=== PATIENT | female | born 1950 | race Caucasian/White ===

== ENCOUNTER → 2016-07-18 | Outpatient (CLI) | payer BC ==
--- NOTE | 2016-07-19 14:46 | MM ---
Reason for exam: screening (asymptomatic). Last mammogram was performed 2 years and 4 months ago. History: Patient is postmenopausal. Physical Findings: A clinical breast exam by your physician is recommended on an annual basis and results should be correlated with mammographic findings. MG Screening Mammo w CAD Bilateral CC and MLO view(s) were taken. Prior study comparison: March 19, 2014, bilateral MG screening mammo w CAD. The breast tissue is heterogeneously dense. This may lower the sensitivity of mammography. There is no discrete abnormality, including at BB. ASSESSMENT: Incomplete: need additional imaging evaluation, BI-RAD 0 RECOMMENDATION: Ultrasound of the right breast. [facility] will attempt to contact patient to return for ultrasound.
== END | disposition home or self-care (01) ==
LOC: RADMAMWWP 13:45
PROVIDERS: ATTEND Family Medicine
DX: Z12.31 Encounter for screening mammogram for malignant neoplasm of breast (principal); R92.8 Other abnormal and inconclusive findings on diagnostic imaging of breast

== ENCOUNTER → 2016-07-25 | Outpatient (CLI) | payer BC ==
--- NOTE | 2016-07-25 11:25 | USB ---
Reason for exam: additional evaluation requested from abnormal screening. History: Patient is postmenopausal. Physical Findings: Nurse Summary: bilateral breast, soft, nodular, movable, 12 o'clock right breast 0.5 x 0.5cm movable, non-tender x 2 weeks (nurse ts). US Breast Workup Limited RT Right breast ultrasound demonstrates a 0.6 x 0.6cm shadowing calcification at 12 o'clock, which correlates to mammographic findings. This corresponds to benign fat necrosis calcifications and correlation to the palpable finding. These results were verbally communicated with the patient and result sheet given to the patient on 07/25/16. ASSESSMENT: Benign, BI-RAD 2 RECOMMENDATION: Return to routine screening mammogram schedule for both breasts.
== END ==
LOC: RADUSWWP 10:05
PROVIDERS: ATTEND Family Medicine
DX: R92.8 Other abnormal and inconclusive findings on diagnostic imaging of breast (principal)

== ENCOUNTER → 2017-08-11 | Outpatient (CLI) | payer MEDICARE ==
--- NOTE | 2017-08-11 15:20 | US ---
EXAMINATION TYPE: US abdomen limited DATE OF EXAM: 08/11/2017 COMPARISON: CT abdomen pelvis April 14, 2014 CLINICAL HISTORY: R10.811 Right upper quad abd tenderness. Patient had ileostomy reversal 3 years ago and has had RUQ pain ever since, h/o cholecystectomy and ileostomy on the right side No obvious hernia seen as well as any other suspicious solid or cystic abnormality or fluid collectio n during dynamic scanning at area of clinical concern. IMPRESSION: As above
== END | disposition home or self-care (01) ==
LOC: RADUSWWP 14:54
PROVIDERS: ATTEND Family Medicine
DX: R10.811 Right upper quadrant abdominal tenderness (principal); Z13.220 Encounter for screening for lipoid disorders
CPT/HCPCS: 76705

== ENCOUNTER → 2017-08-23 | Outpatient (CLI) | payer MEDICARE ==
--- NOTE | 2017-08-23 16:17 | CT ---
EXAMINATION TYPE: CT abdomen pelvis w con DATE OF EXAM: 08/23/2017 HISTORY: Upper abdominal tenderness CT DLP: 831.8mGycm Automated Exposure Control for Dose Reduction was Utilized. CONTRAST: CT scan of the abdomen and pelvis is performed with oral and with IV Contrast, patient injected with 100 mL of Isovue 300. COMPARISON: CT abdomen and pelvis April 14, 2014. Limited abdominal ultrasound August 11, 2017 FINDINGS: LUNG BASES: No significant abnormality is appreciated. LIVER/GB: Cholecystectomy clips are redemonstrated. PANCREAS: No significant abnormality is seen. SPLEEN: No significant abnormality is seen. ADRENALS: No significant abnormality is seen. KIDNEYS: No significant abnormality is seen. BOWEL: Surgical clips and sutures in the pelvis near sigmoid rectal junction are identified. There is no suspicious small or large bowel dilatation. Normal contrast-filled appendix is seen. There are ad ditional sutures in prominent anastomotic bowel anterior right upper to midabdomen coronal image 25, this is not significantly changed from prior study. Diverticula in sigmoid colon are redemonstrated w ithout CT evidence for acute diverticulitis UTERUS/ADNEXA: Uterus is surgically absent or markedly atrophic in appearance. LYMPH NODES: No greater than 1cm abdominal or pelvic lymph nodes are appreciated. OSSEOUS STRUCTURES: Disc space narrowing with vacuum disc phenomenon at lumbosacral junction is prese nt. There is facet arthropathy in lower lumbar levels. OTHER: No suspicious ventral wall hernia is identified. There is mild calcified plaque in the infrare nal abdominal aorta. IMPRESSION: Postsurgical change to the bowel is redemonstrated at 2 levels. No bowel obstruction is s een. There is persistent focal dilatation of a small bowel loop in the anterior right mid abdomen wit hout obstruction not significantly changed from prior. No ventral wall hernia identified. No suspicio us new finding from prior CT seen to account for patient's new symptoms.
== END | disposition home or self-care (01) ==
LOC: RADCTMAIN 14:54
PROVIDERS: ATTEND Family Medicine
DX: R10.811 Right upper quadrant abdominal tenderness (principal); Z98.890 Other specified postprocedural states
CPT/HCPCS: 74177; Q9967

== ENCOUNTER → 2017-09-04 | Outpatient (CLI) | payer MEDICARE ==
--- NOTE | 2017-09-04 16:58 | BD ---
EXAMINATION TYPE: Axial Bone Density DATE OF EXAM: 09/04/2017 COMPARISON: 2013 CLINICAL HISTORY: 67-year-old female postmenopausal screening for osteoporosis Height: 5'5 Weight: 183 FRAX RISK QUESTIONS: Secondary Osteoporosis: 3. Menopause before 45: y RISK FACTORS HISTORY OF: Family History of Osteoporosis: y Postmenopausal woman: MEDICATIONS: Additional Medications: migraine, blood pressure, anxiety Additional History: EXAM MEASUREMENTS: Bone mineral densitometry was performed using the [employer]. Bone mineral density as measured about the Lumbar spine is: ----- L1-L4(G/cm2): 1.110 T Score Values are as follows: ----- L2: -0.4 ----- L3: -0.6 ----- L4: -1.0 ----- L1-L4: -0.6 Bone mineral density has: Decreased -0.1% since study of: 07/16/2013 Bone mineral density about the R hip (g/cm2): 1.021 Bone mineral density about the L hip (g/cm2): 0.985 T Score values are as follows: -----R Neck: -0.1 -----L Neck: -0.4 -----R Total: 0.7 -----L Total: 0.5 Bone mineral density has: Increased 2.4% since study of: 07/16/2013 IMPRESSION: Normal (Values between +1 and -1 indicate normal bone mass). Consider repeating this study in 5 year s or sooner if there is some new clinical indication. NOTE: T-SCORE=SD OF THE YOUNG ADULT MEAN.
--- NOTE | 2017-09-06 10:24 | MM ---
Reason for exam: screening (asymptomatic). Last mammogram was performed 1 year and 2 months ago. History: Patient is postmenopausal. Physical Findings: A clinical breast exam by your physician is recommended on an annual basis and results should be correlated with mammographic findings. MG Screening Mammo w CAD Bilateral CC and MLO view(s) were taken. Prior study comparison: July 18, 2016, bilateral MG screening mammo w CAD. March 19, 2014, bilateral MG screening mammo w CAD. The breast tissue is heterogeneously dense. This may lower the sensitivity of mammography. No significant changes when compared with prior studies. ASSESSMENT: Benign, BI-RAD 2 RECOMMENDATION: Routine screening mammogram of both breasts in 1 year.
== END | disposition home or self-care (01) ==
LOC: RADMAMWWP 12:35
PROVIDERS: ATTEND Family Medicine
DX: Z12.31 Encounter for screening mammogram for malignant neoplasm of breast (principal); Z13.820 Encounter for screening for osteoporosis
CPT/HCPCS: 77067; 77080

== ENCOUNTER → 2017-12-19 | Outpatient (CLI) | payer MEDICARE | END | disposition home or self-care (01) | LOC: LABWHC1 16:35 | PROVIDERS: ATTEND Surgery Plastic and Reconstructive Surgery | DX: Z01.818 Encounter for other preprocedural examination (principal); Z01.812 Encounter for preprocedural laboratory examination; K66.0 Peritoneal adhesions (postprocedural) (postinfection) | CPT/HCPCS: 93005 ==

== ENCOUNTER → 2018-09-21 | Outpatient (CLI) | payer MEDICARE ==
--- NOTE | 2018-09-24 08:49 | MM ---
Reason for exam: screening (asymptomatic). Last mammogram was performed 1 year and 1 month ago. History: Patient is postmenopausal. Physical Findings: A clinical breast exam by your physician is recommended on an annual basis and results should be correlated with mammographic findings. MG 3D Screening Mammo W/Cad Bilateral CC and MLO view(s) were taken. Prior study comparison: September 04, 2017, bilateral MG screening mammo w CAD. July 18, 2016, bilateral MG screening mammo w CAD. The breast tissue is heterogeneously dense. This may lower the sensitivity of mammography. Benign appearing calcifictions in the right breast. No suspicious abnormality. No significant changes when compared with prior studies. ASSESSMENT: Negative, BI-RAD 1 RECOMMENDATION: Routine screening mammogram of both breasts in 1 year.
== END | disposition home or self-care (01) ==
LOC: RADMAMWWP 09:45
PROVIDERS: ATTEND Family Medicine
DX: Z12.31 Encounter for screening mammogram for malignant neoplasm of breast (principal)
CPT/HCPCS: 77063; 77067

== ENCOUNTER → 2020-09-23 | Outpatient (CLI) | payer MEDICARE ==
--- NOTE | 2020-09-23 15:04 | MM ---
Reason for exam: screening (asymptomatic). Last mammogram was performed 2 years ago. History: Patient is postmenopausal. Took hormonal contraceptives for 10 years. Physical Findings: A clinical breast exam by your physician is recommended on an annual basis and results should be correlated with mammographic findings. MG 3D Screening Mammo W/Cad Bilateral CC and MLO view(s) were taken. Prior study comparison: September 21, 2018, bilateral MG 3d screening mammo w/cad. September 04, 2017, bilateral MG screening mammo w CAD. The breast tissue is heterogeneously dense. This may lower the sensitivity of mammography. There are benign appearing round dystrophic calcifications in the right breast. Asymmetric breast tissue left breast upper quadrant, stable. There is no discrete abnormality. ASSESSMENT: Benign, BI-RAD 2 RECOMMENDATION: Routine screening mammogram of both breasts in 1 year.
== END ==
LOC: RADMAMWWP 09:59
PROVIDERS: ATTEND Family Medicine
DX: Z12.31 Encounter for screening mammogram for malignant neoplasm of breast (principal)
CPT/HCPCS: 77063; 77067

== ENCOUNTER 2020-10-08 22:53 | Observation (INO) | payer MEDICARE ==
[2020-10-08] MEDS ORDERED: SODIUM CHLORIDE 0.9% 500 ML 500 ML IV STA (23:21)
--- NOTE | 2020-10-08 23:43 | ED ---
General Adult HPI - General Chief complaint: Recheck/Abnormal Lab/Rx Stated complaint: High BP Time Seen by Provider: 10/08/20 23:05 Source: patient Mode of arrival: ambulatory Limitations: no limitations - History of Present Illness Initial comments: 70 year-old female patient presents to the emergency department for evaluation of elevated blood pressure and chest discomfort. Patient states that she was stung by a bee this morning in the right foot. Saw her physician and was given IM benadryl and steroid. She states this evening when going to bed she developed discomfort in her chest, shortness of breath, and tightness in her jaw so she took her blood pressure. States she had a few high readings so she woke her and came in. Patient states she does take BP medication and has had all doses. She denies any nausea, vomiting, or sweats. Denies palpitations. She denies any lip, tongue, or throat swelling with the bee sting. Patient denies any recent rash, fever, chills, cough abdominal pain, nausea, vomiting, diarrhea, constipation, back pain, numbness, tingling, dizziness, weakness, hematuria, dysuria, urinary urgency, urinary frequency, headache, visual changes, or any other complaints. - Related Data Home Medications Medication Instructions Recorded Confirmed Multivitamins, Thera [Multivitamin 2 tab PO DAILY 09/25/13 12/22/17 (formulary)] Probiotic(Unknown Dose) 1 tab PO DAILY 09/25/13 12/22/17 Propranolol HCl [Propranolol HCl 160 mg PO DAILY 04/11/14 12/22/17 ER] Ascorbic Acid [Vitamin C] 250 mg PO DAILY 12/15/17 12/22/17 Mathieu Back And Body 2 tab PO DIRECTED PRN 12/15/17 12/22/17 Cholecalciferol (Vitamin D3) 2,000 unit PO DAILY 12/15/17 12/22/17 [Vitamin D3] L.acidoph,Paracasei, B.lactis 2 each PO DAILY 12/15/17 12/22/17 [Probiotic] LORazepam [Ativan] 0.5 mg PO BID PRN 12/15/17 12/22/17 Mag/Aluminum/Sod Bicarb/Alginc 2 each PO DIRECTED PRN 12/15/17 12/22/17 [Gaviscon 80-14.2 mg Tab Chew] Melatonin 5 mg PO HS 12/15/17 12/22/17 Omeprazole Magnesium [PriLOSEC OTC] 20 mg PO DAILY 12/15/17 12/22/17 Rizatriptan Odt [Maxalt [employer]er] 10 mg PO ONCE PRN 12/15/17 12/22/17 Sertraline [Zoloft] 50 mg PO DAILY 12/15/17 12/22/17 Previous Rx's Medication Instructions Recorded Enoxaparin [Lovenox] 40 mg SQ DAILY #5 syringe 12/22/17 HYDROcodone/APAP 5-325MG [[place] 1 tab PO Q6HR PRN 3 Days #12 tab 12/22/17 5-325] Ibuprofen [Motrin] 600 mg PO Q8HR PRN #20 tab 12/22/17 Allergies Allergy/AdvReac Type Severity Reaction Status Date / Time codeine Allergy Unknown Itching Verified 10/08/20 23:02 meperidine HCl [From Demerol] Allergy Unknown Nausea & Verified 10/08/20 23:02 Vomiting & Diarrhea ondansetron HCl [From Zofran] Allergy Unknown Swelling Verified 10/08/20 23:02 Penicillins Allergy Unknown Rash/Hives Verified 10/08/20 23:02 Sulfa (Sulfonamide Allergy Unknown Rash/Hives Verified 10/08/20 23:02 Antibiotics) venom-honey bee Allergy Unknown Swelling Verified 10/08/20 23:02 [bee venom (honey bee)] venom-wasp [Wasp Venom] Allergy Unknown Swelling Verified 10/08/20 23:02 Review of Systems ROS Statement: Those systems with pertinent positive or pertinent negative responses have been documented in the HPI. ROS Other: All systems not noted in ROS Statement are negative. Past Medical History Past Medical History: Blood Disorder, Deep Vein Thrombosis (DVT), GERD/Reflux, Liver Disease Additional Past Medical History / Comment(s): MIGRAINES, DIVERTICULITIS, ILEOSTOMY, THEN REVERSED - HAVING PAIN NEAR OLD ILEOSTOMY SITE. DVT X2. FACTOR V. "LIVER LOOKED LARGE ON SCAN." TRIGGER FINGER IN THUMBS. OCC VERTIGO. History of Any Multi-Drug Resistant Organisms: None Reported Past Surgical History: Bowel Resection, Cholecystectomy, Hysterectomy Additional Past Surgical History / Comment(s): ILEOSTOMY, LAPAROSCOPY AND DRAINAGE OF PERITONEAL ABSCESS 01/2013. ILEOSTOMY REVERSAL 2013. Past Anesthesia/Blood Transfusion Reactions: No Reported Reaction Past Psychological History: Anxiety Smoking Status: Never smoker Past Alcohol Use History: Occasional Past Drug Use History: None Reported - Past Family History Mother Family Medical History: No Reported History General Exam Limitations: no limitations General appearance: alert, in no apparent distress, other (This is a well- developed, well-nourished adult female patient in no acute distress. Vital signs upon presentation temperature 97.7F, pulse 79, respirations 18, blood pressure 159/90, pulse ox 96% on room air.) Eye exam: Present: normal appearance, PERRL, EOMI. Absent: scleral icterus, conjunctival injection, periorbital swelling ENT exam: Present: normal exam, normal oropharynx, mucous membranes moist Respiratory exam: Present: normal lung sounds bilaterally. Absent: respiratory distress, wheezes, rales, rhonchi, stridor Cardiovascular Exam: Present: regular rate, normal rhythm, normal heart sounds. Absent: systolic murmur, diastolic murmur, rubs, gallop, clicks GI/Abdominal exam: Present: soft, normal bowel sounds. Absent: distended, tenderness, guarding, rebound, rigid Neurological exam: Present: alert, oriented X3, CN II-XII intact Psychiatric exam: Present: normal affect, normal mood Skin exam: Present: warm, dry, intact, normal color. Absent: rash Course Vital Signs 10/08/20 10/09/20 10/09/20 22:59 00:02 00:19 Temperature 97.7 F Pulse Rate 79 71 70 Respiratory 18 17 18 Rate Blood Pressure 159/90 158/88 154/86 O2 Sat by Pulse 96 99 99 Oximetry 10/09/20 00:49 Temperature Pulse Rate 78 Respiratory 18 Rate Blood Pressure 170/93 O2 Sat by Pulse 100 Oximetry EKG Findings - EKG Comments: EKG Findings:: EKG obtained at 2330 shows normal sinus rhythm with a ventricular rate of 76, MS interval 168, QRS duration 94, QTC 414, QTC 465. No evidence of ST elevation or depression. Medical Decision Making - Medical Decision Making 70 year-old female patient presented for elevated blood pressure. Reported chest discomfort, jaw "tightness", and shortness of breath. Physical examination did reveal right foot swelling due to bee sting this morning. She is afebrile. Blood pressures were somewhat elevated in the department. Chest x-ray is negative. Labs reviewed and are unremarkable. Blood sugar was elevated sided had a hemoglobin A1c. Initial troponin was negative. EKG showed sinus rhythm with no ST elevation or depression. She will be admitted to the hospital for still troponins and further evaluation by cardiology. Patient is agreeable to this plan. Case discussed my attending Dr. Wesley. - Lab Data Result diagrams: 10/08/20 23:24 10/08/20 23:24 Lab Results 10/08/20 10/08/20 10/08/20 Range/Units 23:24 23:24 23:24 WBC 8.9 (3.8-10.6) k/uL RBC 4.84 (3.80-5.40) m/uL Hgb 14.4 (11.4-16.0) gm/dL Hct 44.5 (34.0-46.0) % MCV 91.8 (80.0-100.0) fL MCH 29.7 (25.0-35.0) pg MCHC 32.4 (31.0-37.0) g/dL RDW 13.8 (11.5-15.5) % Plt Count 364 (150-450) k/uL MPV 6.9 Neutrophils % 89 % Lymphocytes % 8 % Monocytes % 1 % Eosinophils % 1 % Basophils % 0 % Neutrophils # 7.9 H (1.3-7.7) k/uL Lymphocytes # 0.7 L (1.0-4.8) k/uL Monocytes # 0.1 (0-1.0) k/uL Eosinophils # 0.1 (0-0.7) k/uL Basophils # 0.0 (0-0.2) k/uL PT 9.9 (9.0-12.0) sec INR 0.9 (<1.2) APTT 21.4 L (22.0-30.0) sec Sodium 141 (137-145) mmol/L Potassium 3.8 (3.5-5.1) mmol/L Chloride 105 (98-107) mmol/L Carbon Dioxide 23 (22-30) mmol/L Anion Gap 13 mmol/L BUN 15 (7-17) mg/dL Creatinine 0.68 (0.52-1.04) mg/dL Est GFR (CKD-EPI)AfAm >90 (>60 ml/min/1.73 sqM) Est GFR (CKD-EPI)NonAf >90 (>60 ml/min/1.73 sqM) Glucose 217 H (74-99) mg/dL Calcium 10.2 (8.4-10.2) mg/dL Magnesium 1.9 (1.6-2.3) mg/dL Total Bilirubin 0.3 (0.2-1.3) mg/dL AST 42 H (14-36) U/L ALT 41 H (4-34) U/L Alkaline Phosphatase 113 (38-126) U/L Troponin I (0.000-0.034) ng/mL Total Protein 7.4 (6.3-8.2) g/dL Albumin 4.5 (3.5-5.0) g/dL 10/08/20 Range/Units 23:24 WBC (3.8-10.6) k/uL RBC (3.80-5.40) m/uL Hgb (11.4-16.0) gm/dL Hct (34.0-46.0) % MCV (80.0-100.0) fL MCH (25.0-35.0) pg MCHC (31.0-37.0) g/dL RDW (11.5-15.5) % Plt Count (150-450) k/uL MPV Neutrophils % % Lymphocytes % % Monocytes % % Eosinophils % % Basophils % % Neutrophils # (1.3-7.7) k/uL Lymphocytes # (1.0-4.8) k/uL Monocytes # (0-1.0) k/uL Eosinophils # (0-0.7) k/uL Basophils # (0-0.2) k/uL PT (9.0-12.0) sec INR (<1.2) APTT (22.0-30.0) sec Sodium (137-145) mmol/L Potassium (3.5-5.1) mmol/L Chloride (98-107) mmol/L Carbon Dioxide (22-30) mmol/L Anion Gap mmol/L BUN (7-17) mg/dL Creatinine (0.52-1.04) mg/dL Est GFR (CKD-EPI)AfAm (>60 ml/min/1.73 sqM) Est GFR (CKD-EPI)NonAf (>60 ml/min/1.73 sqM) Glucose (74-99) mg/dL Calcium (8.4-10.2) mg/dL Magnesium (1.6-2.3) mg/dL Total Bilirubin (0.2-1.3) mg/dL AST (14-36) U/L ALT (4-34) U/L Alkaline Phosphatase (38-126) U/L Troponin I <0.012 (0.000-0.034) ng/mL Total Protein (6.3-8.2) g/dL Albumin (3.5-5.0) g/dL - Radiology Data Radiology results: report reviewed, image reviewed Two-view x-ray of the chest is obtained. Report reviewed in its entirety. Impression by Dr. Pena shows normal chest. No change. Disposition Clinical Impression: Chest pain, SOB (shortness of breath) Disposition: ADMITTED IP TO THIS [facility] Condition: Serious Referrals: Kendra Ace DO [Primary Care Provider] - 1-2 days Decision to Admit Reason: Admit from EC Decision Date: 10/09/20 Decision Time: 01:46
[2020-10-09 00:03] LABS: Basophils % (A) 0 %; Eosinophils # (A) 0.1 k/uL (0-0.7); Eosinophils % (A) 1 %; HCT 44.5 % (34.0-46.0); HGB 14.4 gm/dL (11.4-16.0); Lymphocytes # (A) 0.7 k/uL (1.0-4.8); Lymphocytes % (A) 8 %; MCH 29.7 pg (25.0-35.0); MCHC 32.4 g/dL (31.0-37.0); MCV 91.8 fL (80.0-100.0); Mean Platelet Volume 6.9; Monocytes # (A) 0.1 k/uL (0-1.0); Monocytes % (A) 1 %; Neutrophils # (A) 7.9 k/uL (1.3-7.7); Neutrophils % (A) 89 %; Platelet Count 364 k/uL (150-450); RBC 4.84 m/uL (3.80-5.40); RDW 13.8 % (11.5-15.5); WBC 8.9 k/uL (3.8-10.6)
--- NOTE | 2020-10-09 00:06 | XR ---
EXAMINATION TYPE: XR chest 2V DATE OF EXAM: 10/08/2020 COMPARISON: 06/13/2013 HISTORY: Chest pain TECHNIQUE: FINDINGS: Heart and mediastinum are normal. Lungs are clear. Diaphragm is normal. Bony thorax is inta ct. IMPRESSION: Normal chest. No change.
[2020-10-09 00:14] LABS: AST 42 U/L (14-36); African American GFR (CKD) >90 (>60 ml/min/1.73 sqM); Albumin 4.5 g/dL (3.5-5.0); Alkaline Phosphatase 113 U/L (38-126); Anion Gap 13 mmol/L; Blood Urea Nitrogen 15 mg/dL (7-17); Calcium 10.2 mg/dL (8.4-10.2); Carbon Dioxide 23 mmol/L (22-30); Chloride 105 mmol/L (98-107); Glucose 217 mg/dL (74-99); Magnesium 1.9 mg/dL (1.6-2.3); Non-African American GFR(CKD) >90 (>60 ml/min/1.73 sqM); Potassium 3.8 mmol/L (3.5-5.1); Sodium 141 mmol/L (137-145); Total Bilirubin 0.3 mg/dL (0.2-1.3); Total Protein 7.4 g/dL (6.3-8.2)
[2020-10-09 00:21] LABS: ALT 41 U/L (4-34)
[2020-10-09 00:27] LABS: INR 0.9 (<1.2); Prothrombin Time 9.9 sec (9.0-12.0)
[2020-10-09 01:25] LABS: Partial Thromboplastin Time 21.4 sec (22.0-30.0)
[2020-10-09] MEDS ORDERED: NALOXONE 0.4 MG/ML 1 ML VIAL IV PRN (01:43)
[2020-10-09] MEDS ORDERED: MORPHINE SULFATE 2 MG/ML SYRINGE IV PRN (01:43)
[2020-10-09] MEDS ORDERED: ASPIRIN 81 MG PO STA (01:45)
[2020-10-09] MEDS: ASPIRIN 325 MG TAB PO SCH ×2 (02:26→08:21)
--- NOTE | 2020-10-09 10:29 | P.CRDCN ---
History of Present Illness Consult date: 10/09/20 History of present illness: HISTORY OF PRESENT ILLNESS: This is a 70-year-old female with a past medical history significant for migraines. 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 We have been asked to see the patient in consultation for chest pain. Patient examined at the bedside. Patient states she got stung by a bee on the foot yesterday morning. She went to her primary care physician to be evaluated and was given a dose of intramus cular steroids. Patient states around 7 or 8 PM she began having bilateral jaw pain. She felt shortness of breath. She also felt mild chest pressure and palpitations. She denies any chest pain. She states she took her blood pressure which was in the 180s which concerned her so she came to the hospital for evaluation. EKG reveals sinus mechanism with ST depressions in inferior leads and V5V6, similar to previous EKG Chest xray negative for acute process Laboratory data: WBC 8.9. Hemoglobin 14.4. Platelet count 364. Sodium 141. Potassium 3.8. BUN 15. Creatinine 0.68. Magnesium 1.9. Troponin negative 3. Current home cardiac medications include propanolol 160 mg daily REVIEW OF SYSTEMS: At the time of my exam: CONSTITUTIONAL: Denies fever or chills. HEENT: Denies blurred vision, vision changes, or eye pain. Denies hemoptysis CARDIOVASCULAR: Denies chest pain. Denies orthopnea. Denies PND. Denies palpitations RESPIRATORY: Denies shortness of breath. GASTROINTESTINAL: Denies abdominal pain. Denies nausea or vomiting. HEMATOLOGIC: Denies bleeding disorders. GENITOURINARY: Denies any blood in urine. SKIN: Denies pruitis. Denies rash. PHYSICAL EXAM: VITAL SIGNS: Reviewed. GENERAL: Well-developed in no acute distress. HEENT: Head is normocephalic. Pupils are equal, round. Sclerae anicteric. Mucous membranes of the mouth are moist. Neck supple. No JVD or thyromegaly LUNGS: Respirations even and unlabored. Lungs essentially clear to auscultation bilaterally. HEART: Regular rate and rhythm. S1 and S2 heard. ABDOMEN: Soft. Nondistended. Nontender. EXTREMITIES: Normal range of motion. No clubbing or cyanosis. Peripheral pulses intact. No lower extremity edema NEUROLOGIC: Awake and alert. Oriented x 3. ASSESSMENT: Chest pain, palpitations, and jaw pain, S/P bee string and steroid injection, troponin negative x 3 Shortness of breath on exertion Migraines PLAN: An acute coronary event has been ruled out Obtain 2-D echo to assess cardiac structure and function If echocardiogram does not reveal any significant abnormalities, the patient may be discharged home from a cardiac standpoint She is to follow outpatient with Dr. Monterroso Possible outpatient stress test to be performed secondary to shortness of breath on exertion Nurse practitioner note has been reviewed by physician. Signing provider agrees with the documented findings, assessment, and plan of care. Past Medical History Past Medical History: Blood Disorder, Deep Vein Thrombosis (DVT), GERD/Reflux, Liver Disease Additional Past Medical History / Comment(s): MIGRAINES, DIVERTICULITIS, ILEOSTOMY, THEN REVERSED - HAVING PAIN NEAR OLD ILEOSTOMY SITE. DVT X2. FACTOR V. "LIVER LOOKED LARGE ON SCAN." TRIGGER FINGER IN THUMBS. OCC VERTIGO. History of Any Multi-Drug Resistant Organisms: None Reported Past Surgical History: Bowel Resection, Cholecystectomy, Hysterectomy Additional Past Surgical History / Comment(s): ILEOSTOMY, LAPAROSCOPY AND DRAINAGE OF PERITONEAL ABSCESS 01/2013. ILEOSTOMY REVERSAL 2013. Past Anesthesia/Blood Transfusion Reactions: No Reported Reaction Past Psychological History: Anxiety Smoking Status: Never smoker Past Alcohol Use History: Occasional Past Drug Use History: None Reported - Past Family History Mother Family Medical History: No Reported History Medications and Allergies Home Medications Medication Instructions Recorded Confirmed Type Propranolol HCl [Propranolol HCl 160 mg PO DAILY 04/11/14 10/09/20 History ER] LORazepam [Ativan] 0.5 mg PO BID PRN 12/15/17 10/09/20 History Omeprazole Magnesium [PriLOSEC OTC] 20 mg PO DAILY 12/15/17 10/09/20 History Sertraline [Zoloft] 50 mg PO DAILY 12/15/17 10/09/20 History Calcium Gummies 2 tab PO DAILY 10/09/20 10/09/20 History Fluticasone Nasal [place] [Flonase 2 spr EA NOSTRIL HS 10/09/20 10/09/20 History Nasal [place]] Melatonin 3 mg PO HS 10/09/20 10/09/20 History Multivitamin [Multivitamins Adult 2 tab PO DAILY 10/09/20 10/09/20 History Gummies] Vitamin B-12 Gummies(Unknown Dose) 2 tab PO DAILY 10/09/20 10/09/20 History Vitamin D3 Gummies(Unknown Dose) 2 tab PO DAILY 10/09/20 10/09/20 History Allergies Allergy/AdvReac Type Severity Reaction Status Date / Time codeine Allergy Unknown Itching Verified 10/09/20 08:09 meperidine HCl [From Demerol] Allergy Unknown Nausea & Verified 10/09/20 08:09 Vomiting & Diarrhea ondansetron HCl [From Zofran] Allergy Unknown Swelling Verified 10/09/20 08:09 Penicillins Allergy Unknown Rash/Hives Verified 10/09/20 08:09 Sulfa (Sulfonamide Allergy Unknown Rash/Hives Verified 10/09/20 08:09 Antibiotics) venom-honey bee Allergy Unknown Swelling Verified 10/09/20 08:09 [bee venom (honey bee)] venom-wasp [Wasp Venom] Allergy Unknown Swelling Verified 10/09/20 08:09 Physical Exam Vitals: Vital Signs Temp Pulse Pulse Resp BP BP Pulse Ox 10/09/20 07:00 98.2 F 61 16 149/78 95 10/09/20 03:33 97.8 F 68 16 156/87 94 L 10/09/20 02:38 79 18 166/94 98 10/09/20 00:49 78 18 170/93 100 10/09/20 00:19 70 18 154/86 99 10/09/20 00:02 71 17 158/88 99 10/08/20 22:59 97.7 F 79 18 159/90 96 Intake and Output 10/08/20 10/09/20 10/09/20 22:59 06:59 14:59 Other: Voiding Method Toilet # Voids 1 Weight 79.379 kg 79.379 kg Results 10/08/20 23:24 10/08/20 23:24 Cardiac Enzymes 10/08/20 10/08/20 10/09/20 Range/Units 23:24 23:24 04:10 AST 42 H (14-36) U/L Troponin I <0.012 <0.012 (0.000-0.034) ng/mL 10/09/20 Range/Units 04:38 AST (14-36) U/L Troponin I <0.012 (0.000-0.034) ng/mL Coagulation 10/08/20 Range/Units 23:24 PT 9.9 (9.0-12.0) sec APTT 21.4 L (22.0-30.0) sec CBC 10/08/20 Range/Units 23:24 WBC 8.9 (3.8-10.6) k/uL RBC 4.84 (3.80-5.40) m/uL Hgb 14.4 (11.4-16.0) gm/dL Hct 44.5 (34.0-46.0) % Plt Count 364 (150-450) k/uL Comprehensive Metabolic Panel 10/08/20 Range/Units 23:24 Sodium 141 (137-145) mmol/L Potassium 3.8 (3.5-5.1) mmol/L Chloride 105 (98-107) mmol/L Carbon Dioxide 23 (22-30) mmol/L BUN 15 (7-17) mg/dL Creatinine 0.68 (0.52-1.04) mg/dL Glucose 217 H (74-99) mg/dL Calcium 10.2 (8.4-10.2) mg/dL AST 42 H (14-36) U/L ALT 41 H (4-34) U/L Alkaline Phosphatase 113 (38-126) U/L Total Protein 7.4 (6.3-8.2) g/dL Albumin 4.5 (3.5-5.0) g/dL Current Medications Generic Name Dose Route Start Last Admin Trade Name Freq PRN Reason Stop Dose Admin Aspirin 325 mg 10/09/20 09:00 10/09/20 08:21 Aspirin 325 Mg Tab PO 325 mg DAILY THANIA Administration Morphine Sulfate 2 mg 10/09/20 01:43 Morphine Sulfate 2 Mg/Ml Syringe IV Q4HR PRN Severe Pain Naloxone HCl 0.2 mg 10/09/20 01:43 Naloxone 0.4 Mg/Ml 1 Ml Vial IV Q2M PRN Opioid Reversal Intake and Output 10/08/20 10/09/20 10/09/20 22:59 06:59 14:59 Other: Voiding Method Toilet # Voids 1 Weight 79.379 kg 79.379 kg 10/08/20 23:24 10/08/20 23:24
[2020-10-09] MEDS ORDERED: diphenhydrAMINE 50 MG/ML 1 ML VIAL IVP STA (10:57)
--- NOTE | 2020-10-09 11:45 | ECHOF ---
Referral Reason:LV function MEASUREMENTS -------- HEIGHT: 165.1 cm WEIGHT: 79.4 kg BP: 149/78 RVIDd: 2.9 cm (< 3.3) IVSd: 1.0 cm (0.6 - 1.1) LVIDd: 4.4 cm (3.9 - 5.3) LVPWd: 1.1 cm (0.6 - 1.1) IVSs: 1.5 cm LVIDs: 2.3 cm LVPWs: 1.4 cm LA Diam: 3.4 cm (2.7 - 3.8) LAESV Index (A-L): 27.24 ml/m Ao Diam: 3.0 cm (2.0 - 3.7) AV Cusp: 1.9 cm (1.5 - 2.6) MV EXCURSION: 18.667 mm (> 18.000) MV EF SLOPE: 124 mm/s (70 - 150) EPSS: 0.5 cm MV E Roman: 1.01 m/s MV DecT: 240 ms MV A Roman: 1.08 m/s MV E/A Ratio: 0.94 RAP: 5.00 mmHg RVSP: 20.34 mmHg FINDINGS -------- Sinus rhythm. This was a technically good study. The left ventricular size is normal. There is borderline concentric left ventricular hypertrophy. There is normal global left ventricular contractility. Overall left ventricular systolic function is normal with, an EF between 60 - 65 %. The right ventricle is normal in size. Normal LA size by volume 22+/-6 ml/m2. The right atrium is normal in size. Interatrial and interventricular septum intact. The aortic valve is trileaflet, and appears structurally normal. No aortic stenosis or regurgitation. There is trace to mild mitral regurgitation. Mild tricuspid regurgitation present. Right ventricular systolic pressure is normal at < 35 mmHg. Trace/mild (physiologic) pulmonic regurgitation. The aortic root size is normal. Normal inferior vena cava with normal inspiratory collapse consistent with estimated right atrial pre ssure of 5 mmHg. There is no pericardial effusion. CONCLUSIONS -------- 1. The left ventricular size is normal. 2. There is borderline concentric left ventricular hypertrophy. 3. There is normal global left ventricular contractility. 4. Overall left ventricular systolic function is normal with, an EF between 60 - 65 %. 5. The aortic valve is trileaflet, and appears structurally normal. No aortic stenosis or regurgitati on. 6. There is trace to mild mitral regurgitation. 7. Mild tricuspid regurgitation present. 8. Trace/mild (physiologic) pulmonic regurgitation. 9. There is no pericardial effusion. 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
[2020-10-09] MEDS ORDERED: ACETAMINOPHEN TAB 325 MG TAB PO STA (12:11)
[2020-10-09] MEDS ORDERED: LORazepam 0.5 MG TAB PO PRN (16:37)
[2020-10-09 17:04] LABS: Hemoglobin A1C 6.3 % (4.0-6.0)
[2020-10-09] MEDS ORDERED: diphenhydrAMINE 25 MG CAP PO PRN (17:53)
[2020-10-09] MEDS ORDERED: FLUTICASONE 50MCG/SPRAY NASAL 16GM EA NOSTRIL SCH (21:00)
[2020-10-09] MEDS ORDERED: MELATONIN 3 MG TABLET PO SCH (21:00)
[2020-10-09] MEDS: predniSONE 20 MG TAB PO SCH (21:07)
[2020-10-10] MEDS ORDERED: PANTOPRAZOLE 40 MG TABLET PO SCH (07:30)
[2020-10-10 07:52] VITALS: RESP 18; TEMP 97.9
[2020-10-10] MEDS: predniSONE 20 MG TAB PO SCH (08:05)
[2020-10-10] MEDS ORDERED: VITAMIN B12 GUMMIES PO SCH (09:00)
[2020-10-10] MEDS ORDERED: CALCIUM GUMMIES PO SCH (09:00)
[2020-10-10] MEDS ORDERED: MULTIVITAMINS, THERA 1 EACH TAB PO SCH (09:00)
[2020-10-10] MEDS ORDERED: PROPRANOLOL LA 80 MG CAP.SA.24H PO SCH (09:00)
[2020-10-10] MEDS ORDERED: VITAMIN D3 GUMMIES PO SCH (09:00)
[2020-10-10] MEDS ORDERED: SERTRALINE 50 MG TAB PO SCH (09:00)
--- NOTE | 2020-10-10 09:24 | P.HPIM ---
History of Present Illness H&P Date: 10/09/20 Chief Complaint: Abnormal labs 70 year-old female patient presents to the emergency department for evaluation of elevated blood pressure and chest discomfort. Patient states that she was stung by a bee this morning in the right foot. Saw her physician and was given IM benadryl and steroid. She states this evening when going to bed she developed discomfort in her chest, shortness of breath, and tightness in her jaw so she took her blood pressure. States she had a few high readings so she woke her and came in. Patient states she does take BP medication and has had all doses. She denies any nausea, vomiting, or sweats. Blood pressures were somewhat elevated in the department. Chest x-ray is negative. Labs reviewed and are unremarkable. Blood sugar was elevated sided had a hemoglobin A1c. Initial troponin was negative. EKG showed sinus rhythm with no ST elevation or depression. She will be admitted to the hospital for still troponins and further evaluation by cardiology Review of Systems REVIEW OF SYSTEMS: CONSTITUTIONAL: No fever, no malaise, no fatigue. HEENT: No recent visual problems or hearing problems. Denied any sore throat. CARDIOVASCULAR: No chest pain, orthopnea, PND, no palpitations, no syncope. PULMONARY: No shortness of breath, no cough, no hemoptysis. GASTROINTESTINAL: No diarrhea, no nausea, no vomiting, no abdominal pain. NEUROLOGICAL: No headaches, no weakness, no numbness. HEMATOLOGICAL: Denies any bleeding or petechiae. GENITOURINARY: Denies any burning micturition, frequency, or urgency. MUSCULOSKELETAL/RHEUMATOLOGICAL: Denies any joint pain, swelling, or any muscle pain. ENDOCRINE: Denies any polyuria or polydipsia. The rest of the 14-point review of systems is negative. Past Medical History Past Medical History: Blood Disorder, Deep Vein Thrombosis (DVT), GERD/Reflux, Liver Disease Additional Past Medical History / Comment(s): MIGRAINES, DIVERTICULITIS, ILEOSTOMY, THEN REVERSED - HAVING PAIN NEAR OLD ILEOSTOMY SITE. DVT X2. FACTOR V. "LIVER LOOKED LARGE ON SCAN." TRIGGER FINGER IN THUMBS. OCC VERTIGO. History of Any Multi-Drug Resistant Organisms: None Reported Past Surgical History: Bowel Resection, Cholecystectomy, Hysterectomy Additional Past Surgical History / Comment(s): ILEOSTOMY, LAPAROSCOPY AND DRAINAGE OF PERITONEAL ABSCESS 01/2013. ILEOSTOMY REVERSAL 2013. Past Anesthesia/Blood Transfusion Reactions: No Reported Reaction Past Psychological History: Anxiety Smoking Status: Never smoker Past Alcohol Use History: Occasional Past Drug Use History: None Reported - Past Family History Mother Family Medical History: No Reported History Medications and Allergies Home Medications Medication Instructions Recorded Confirmed Type Propranolol HCl [Propranolol HCl 160 mg PO DAILY 04/11/14 10/09/20 History ER] LORazepam [Ativan] 0.5 mg PO BID PRN 12/15/17 10/09/20 History Omeprazole Magnesium [PriLOSEC OTC] 20 mg PO DAILY 12/15/17 10/09/20 History Sertraline [Zoloft] 50 mg PO DAILY 12/15/17 10/09/20 History Calcium Gummies 2 tab PO DAILY 10/09/20 10/09/20 History Fluticasone Nasal [place] [Flonase 2 spr EA NOSTRIL HS 10/09/20 10/09/20 History Nasal [place]] Melatonin 3 mg PO HS 10/09/20 10/09/20 History Multivitamin [Multivitamins Adult 2 tab PO DAILY 10/09/20 10/09/20 History Gummies] Vitamin B-12 Gummies(Unknown Dose) 2 tab PO DAILY 10/09/20 10/09/20 History Vitamin D3 Gummies(Unknown Dose) 2 tab PO DAILY 10/09/20 10/09/20 History Allergies Allergy/AdvReac Type Severity Reaction Status Date / Time codeine Allergy Unknown Itching Verified 10/09/20 08:09 meperidine HCl [From Demerol] Allergy Unknown Nausea & Verified 10/09/20 08:09 Vomiting & Diarrhea ondansetron HCl [From Zofran] Allergy Unknown Swelling Verified 10/09/20 08:09 Penicillins Allergy Unknown Rash/Hives Verified 10/09/20 08:09 Sulfa (Sulfonamide Allergy Unknown Rash/Hives Verified 10/09/20 08:09 Antibiotics) venom-honey bee Allergy Unknown Swelling Verified 10/09/20 08:09 [bee venom (honey bee)] venom-wasp [Wasp Venom] Allergy Unknown Swelling Verified 10/09/20 08:09 Physical Exam Vitals: Vital Signs Temp Pulse Pulse Resp BP BP Pulse Ox 10/09/20 08:00 16 10/09/20 07:00 98.2 F 61 16 149/78 95 10/09/20 03:33 97.8 F 68 16 156/87 94 L 10/09/20 02:38 79 18 166/94 98 10/09/20 00:49 78 18 170/93 100 10/09/20 00:19 70 18 154/86 99 10/09/20 00:02 71 17 158/88 99 10/08/20 22:59 97.7 F 79 18 159/90 96 Intake and Output 10/08/20 10/09/20 10/09/20 22:59 06:59 14:59 Other: Voiding Method Toilet # Voids 1 Weight 79.379 kg 79.379 kg - Constitutional General appearance: Present: average body habitus, cooperative, no acute distress - EENT Eyes: Present: anicteric sclerae, EOMI, PERRLA, normal appearance ENT: Present: hearing grossly normal, normal oropharynx Ears: bilateral: normal - Neck Neck: Present: normal ROM. Absent: lymphadenopathy, rigidity, thyromegaly Carotids: negative: bruit present Thyroid: bilateral: normal size, negative: enlarged, nodule - Respiratory Respiratory: bilateral: CTA, negative: rales, rhonchi, wheezing - Cardiovascular Rhythm: regular Heart sounds: normal: S1, S2 Abnormal Heart Sounds: Absent: systolic murmur, diastolic murmur - Gastrointestinal General gastrointestinal: Present: normal bowel sounds, soft. Absent: distended, organomegaly, tenderness - Genitourinary Genitourinary Comment(s): deferred - Integumentary Integumentary: Present: normal turgor. Absent: jaundiced, rash, ulcer - Neurologic Neurologic: Present: CNII-XII intact. Absent: focal deficits - Musculoskeletal Musculoskeletal: Present: gait normal, strength equal bilaterally - Psychiatric Psychiatric: Present: A&O x's 3, appropriate affect, intact judgment & insight Results CBC & Chem 7: 10/08/20 23:24 10/08/20 23:24 Labs: Abnormal Lab Results - Last 24 Hours (Table) 10/08/20 10/08/20 10/08/20 Range/Units 23:24 23:24 23:24 Neutrophils # 7.9 H (1.3-7.7) k/uL Lymphocytes # 0.7 L (1.0-4.8) k/uL APTT 21.4 L (22.0-30.0) sec Glucose 217 H (74-99) mg/dL AST 42 H (14-36) U/L ALT 41 H (4-34) U/L Thrombosis Risk Factor Assmnt - Choose All That Apply Each Risk Factor Represents 2 Points: Age 61-74 years Thrombosis Risk Factor Assessment Total Risk Factor Score: 2 Thrombosis Risk Factor Assessment Level: Low Risk Assessment and Plan Assessment: 1. Chest pain/palpitations; associated with jaw pain - Trend troponin and monitor EKG; so far troponin has been negative; cardiology on board and recommending 2-D echo to assess left ventricular function; no further cardiac workup was recommended if echocardiogram is stable 2. Dyspnea; patient continues to speak in short sentences complaining of shortness of breath; O2 saturation stable on room air; we will consult pulmonary for any further inquired workup 3. Bee sting/anaphylaxis; patient reports some puffiness and erythema and rash around face; has been complaining of persistent dyspnea; I will start patient on steroids and scheduled Benadryl for next 24 hours and reevaluate for further recommendations 4. Migraine headaches; patient is currently on prophylaxis with propranolol 5. Gastroesophageal reflux disease; we'll resume PPI per home dosing 6. Depression; Zoloft 50 mg by mouth daily at bedtime DVT prophylaxis; SCDs CODE STATUS; full code
--- NOTE | 2020-10-10 11:29 | P.CNPUL ---
History of Present Illness Consult date: 10/10/20 Requesting physician: Krunal Childers Reason for consult: dyspnea Chief complaint: Chest discomfort, shortness of breath History of present illness: This very pleasant 70-year-old female patient who follows with Dr. Spears as her primary care provider. She has a history of factor V Leiden and previous DVT 2. She has seen a control clerk head stated if she should have another blood clot should be treated with blood thinners. Currently has not been on blood thinners. She also has a history of gastroesophageal reflux disease, diverticulitis with subsequent ileostomy and eventual reversal. She is a lifelong nonsmoker. She presented to the emergency room on 10/08/2020 with concerns regarding elevated blood pressure and chest discomfort. She had been stung by a bee earlier in the morning and saw her family physician who gave her Benadryl and steroids. Later that day she developed chest tightness, some shortness of breath and tightness in her jaw. Her blood pressure was found to be in the 180s systolic and came in for the same. Echocardiogram revealed preserved left ventricular systolic function with the ejection fraction 60-65%. Troponins negative 3. We are consulted for her issues with shortness of breath. She states she had been having dyspnea on exertion on and off for over a year. She has gained about 20 pounds. She's had rescue inhaler but not on maintenance medications. No history of asthma. White count 8.9. Hemoglobin 14.4. Sodium 141. Potassium 3.8. Creatinine 0.68. D-dimer 1.36. Oreilly virus not detected. She is seen today in consultation on the regular medical floor. She is currently sitting up in bed. Awake and alert in no acute distress. Maintaining O2 saturations in the 90s on room air. No further chest discomfort. No palpitations lightheadedness or dizziness. No cough or congestion. No fever, chills or night sweats. No hemoptysis. Current blood pressure 140/88. Review of Systems REVIEW OF SYSTEMS: CONSTITUTIONAL: Positive for 20 pound weight gain. EYES: Denies change in vision. EARS, NOSE, MOUTH, THROAT: Denies headaches, denies sore throat. CARDIOVASCULAR: Positive for chest pain, no palpitations or syncopal episodes. RESPIRATORY: Positive for shortness of breath, no cough, congestion or hemop tysis. GASTROINTESTINAL: Denies change in appetite, denies abdominal pain GENITOURINARY: Denies hematuria, denies infections. MUSKULOSKELETAL: Denies pain, denies swelling. INTEGUMENTARY: Edema of the right foot secondary to bee sting. NEUROLOGICAL: Denies recent memory loss, no recent seizure activity. PSYCHIATRIC: Denies anxiety, denies depression. HEMATOLOGIC/LYMPHATIC: Denies anemia, denies enlarged lymph nodes. Past Medical History Past Medical History: Blood Disorder, Deep Vein Thrombosis (DVT), GERD/Reflux, Liver Disease Additional Past Medical History / Comment(s): MIGRAINES, DIVERTICULITIS, ILEOSTOMY, THEN REVERSED - HAVING PAIN NEAR OLD ILEOSTOMY SITE. DVT X2. FACTOR V. "LIVER LOOKED LARGE ON SCAN." TRIGGER FINGER IN THUMBS. OCC VERTIGO. History of Any Multi-Drug Resistant Organisms: None Reported Past Surgical History: Bowel Resection, Cholecystectomy, Hysterectomy Additional Past Surgical History / Comment(s): ILEOSTOMY, LAPAROSCOPY AND DRAINAGE OF PERITONEAL ABSCESS 01/2013. ILEOSTOMY REVERSAL 2013. Past Anesthesia/Blood Transfusion Reactions: No Reported Reaction Past Psychological History: Anxiety Smoking Status: Never smoker Past Alcohol Use History: Occasional Past Drug Use History: None Reported - Past Family History Mother Family Medical History: No Reported History Medications and Allergies Home Medications Medication Instructions Recorded Confirmed Type Propranolol HCl [Propranolol HCl 160 mg PO DAILY 04/11/14 10/09/20 History ER] LORazepam [Ativan] 0.5 mg PO BID PRN 12/15/17 10/09/20 History Omeprazole Magnesium [PriLOSEC OTC] 20 mg PO DAILY 12/15/17 10/09/20 History Sertraline [Zoloft] 50 mg PO DAILY 12/15/17 10/09/20 History Calcium Gummies 2 tab PO DAILY 10/09/20 10/09/20 History Fluticasone Nasal [place] [Flonase 2 spr EA NOSTRIL HS 10/09/20 10/09/20 History Nasal [place]] Melatonin 3 mg PO HS 10/09/20 10/09/20 History Multivitamin [Multivitamins Adult 2 tab PO DAILY 10/09/20 10/09/20 History Gummies] Vitamin B-12 Gummies(Unknown Dose) 2 tab PO DAILY 10/09/20 10/09/20 History Vitamin D3 Gummies(Unknown Dose) 2 tab PO DAILY 10/09/20 10/09/20 History Allergies Allergy/AdvReac Type Severity Reaction Status Date / Time codeine Allergy Unknown Itching Verified 10/09/20 08:09 meperidine HCl [From Demerol] Allergy Unknown Nausea & Verified 10/09/20 08:09 Vomiting & Diarrhea ondansetron HCl [From Zofran] Allergy Unknown Swelling Verified 10/09/20 08:09 Penicillins Allergy Unknown Rash/Hives Verified 10/09/20 08:09 Sulfa (Sulfonamide Allergy Unknown Rash/Hives Verified 10/09/20 08:09 Antibiotics) venom-honey bee Allergy Unknown Swelling Verified 10/09/20 08:09 [bee venom (honey bee)] venom-wasp [Wasp Venom] Allergy Unknown Swelling Verified 10/09/20 08:09 Physical Exam Vitals: Vital Signs Temp Pulse Resp BP Pulse Ox 10/10/20 07:00 97.9 F 62 18 148/88 96 10/10/20 02:15 97.7 F 63 16 146/87 95 10/10/20 01:58 17 10/09/20 20:09 97.0 F L 67 20 161/91 100 10/09/20 20:00 20 10/09/20 14:44 98.1 F 61 16 149/82 98 10/09/20 14:00 16 Intake and Output 10/09/20 10/10/20 10/10/20 22:59 06:59 14:59 Other: Voiding Method Toilet Toilet # Voids 2 1 GENERAL EXAM: Alert, active, pleasant 70-year-old female patient, on room air, comfortable in no apparent distress. HEAD: Normocephalic. EYES: Normal reaction of pupils, equal size. NOSE: Clear with pink turbinates. THROAT: No erythema or exudates. NECK: No masses, no JVD. CHEST: No chest wall deformity. LUNGS: Equal air entry with no crackles, wheeze, rhonchi or dullness. CVS: S1 and S2 normal with no audible murmur, regular rhythm. ABDOMEN: No hepatosplenomegaly, normal bowel sounds, no guarding or rigidity. SPINE: No scoliosis or deformity SKIN: No rashes CENTRAL NERVOUS SYSTEM: No focal deficits, tone is normal in all 4 extremities. EXTREMITIES: There is no peripheral edema. No clubbing, no cyanosis. Peripheral pulses are intact. Results - Laboratory Findings CBC and BMP: 10/08/20 23:24 10/08/20 23:24 PT/INR, D-dimer PT 9.9 sec (9.0-12.0) 10/08/20 23:24 INR 0.9 (<1.2) 10/08/20 23:24 D-Dimer 1.36 mg/L FEU (<0.60) H 10/09/20 20:26 Abnormal lab findings: Abnormal Labs 10/08/20 10/08/20 10/08/20 23:24 23:24 23:24 Neutrophils # 7.9 H Lymphocytes # 0.7 L APTT 21.4 L D-Dimer Glucose 217 H Hemoglobin A1c AST 42 H ALT 41 H 10/08/20 10/09/20 23:24 20:26 Neutrophils # Lymphocytes # APTT D-Dimer 1.36 H Glucose Hemoglobin A1c 6.3 H AST ALT - Diagnostic Findings Chest x-ray: image reviewed Assessment and Plan Assessment: 1 Atypical chest pain 2 Hypertension 3 Dyspnea on exertion for greater than one year 4 Recent bee sting and treated with steroids 5 Factor V Leiden 6 Previous history of DVT 2 7 Anxiety 8 History of diverticulitis with ileostomy and subsequent reversal Plan: The patient was seen and evaluated by Dr. Durham D-dimer is checked and was 1.36 CT angiogram ordered If negative for PE the patient is cleared for discharge If positive for PE, lifelong anticoagulants I, the cosigning physician, performed a history & physical examination of the patient. Lungs sounds are clear. Maintaining good O2 saturations in the 90s on room air. I discussed the assessment and plan of care with my nurse practitioner, Aurelia Pinedo. I attest to the above consultation as dictated by her. Time with Patient: Greater than 30
--- NOTE | 2020-10-10 13:03 | CT ---
EXAMINATION TYPE: CT angio chest DATE OF EXAM: 10/10/2020 COMPARISON: None HISTORY: Short of breath CT DLP: mGycm Automated exposure control for dose reduction was used. CONTRAST: The contrast was Isovue 100 mL. There are 3-D post processed images. The lungs are clear of consolidation. There is no evidence of a pulmonary mass. There is no pleural e ffusion. There is minimal subsegmental atelectasis at the lung bases. Heart size is normal. There is no pericardial effusion. There are no hilar masses. There is no mediastinal adenopathy. Thoracic aort a is intact. The ascending aorta measures 3.6 cm. There is mild spurring in the thoracic spine. There is no compression fracture. There is no evidence of filling defect in the pulmonary arteries. IMPRESSION: Negative exam. No evidence of pulmonary embolism.
[2020-10-10 14:42] VITALS: BP 157/93; PULSE 67
== END 2020-10-10 15:38 | disposition home or self-care (01) ==
LOC: EC 22:53 → 6NMEDSUR 10-09 01:40
PROVIDERS: ADMIT Hospitalist; ATTEND Hospitalist
DX: R07.89 Other chest pain (principal); I10 Essential (primary) hypertension; S90.861A Insect bite (nonvenomous), right foot, initial encounter; T63.441A Toxic effect of venom of bees, accidental (unintentional), initial encounter; Z20.822 Contact with and (suspected) exposure to COVID-19; D68.2 Hereditary deficiency of other clotting factors; F41.9 Anxiety disorder, unspecified; R00.2 Palpitations; R68.84 Jaw pain; R06.09 Other forms of dyspnea; R06.02 Shortness of breath; K21.9 Gastro-esophageal reflux disease without esophagitis; F32.9 Major depressive disorder, single episode, unspecified; Z79.899 Other long term (current) drug therapy; K76.9 Liver disease, unspecified; M65.30 Trigger finger, unspecified finger; R73.9 Hyperglycemia, unspecified; Z88.5 Allergy status to narcotic agent; Z88.6 Allergy status to analgesic agent; Z88.8 Allergy status to other drugs, medicaments and biological substances; Z88.0 Allergy status to penicillin; Z88.2 Allergy status to sulfonamides; Z91.030 Bee allergy status; Z90.710 Acquired absence of both cervix and uterus; Z90.49 Acquired absence of other specified parts of digestive tract; Z86.69 Personal history of other diseases of the nervous system and sense organs; Z86.718 Personal history of other venous thrombosis and embolism; Z87.19 Personal history of other diseases of the digestive system
CPT/HCPCS: 96374; 99285; 36415; 93005; 93306; 85379; 80053; 83735; 84484 ×2; 85025; 85610; 85730; 83036; 87635; 71046; 71275; G0378 ×2; J1200; J7512 ×2; Q9967

== ENCOUNTER → 2020-11-13 | Outpatient (CLI) | payer MEDICARE ==
--- NOTE | 2020-11-13 12:13 | EST ---
EXERCISE STRESS DATE OF THE STUDY: November 13, 2020. INDICATION: Chest pain. AGE: 70 SEX: F HT: 5'5" WT: 180 lbs PROTOCOL: Maximo STAGE: 3 DURATION OF EXERCISE: 6:15 HEART RATE REST: 58 BLOOD PRESSURE REST: 111/90 MAXIMUM HEART RATE ACHIEVED: 154 MAXIMUM BLOOD PRESSURE: 198/98 85% MPHR: 129 100% MPHR: 152 METS: 7.5 STRESS DATA: Heart rate 58, pressure is 111/90 mmHg. Baseline EKG showed sinus mechanism. The patient exercised on the treadmill according to Maximo protocol for a total of 6 minutes and achieved 7.5 METs. Max heart rate was 179, which is about 100% of maximum predicted heart rate and maximum blood pressure was 194/98 mmHg. Clinically, the patient the developed some shortness of breath during exertion. The EKG showed about 2 mm horizontal and upsloping ST-segment changes. CONCLUSION: 1. Good exercise tolerance. 2. Abnormal EKG in response to exercise with about 1.5 mm to about [address]-segment changes concerning for severe underlying coronary artery disease. MMODL / IJN: [id number] /
== END | disposition home or self-care (01) ==
LOC: RADNMMAIN 08:51
PROVIDERS: ATTEND Family Medicine
DX: R94.31 Abnormal electrocardiogram [ECG] [EKG] (principal)
CPT/HCPCS: 93017

== ENCOUNTER → 2021-09-29 | Outpatient (CLI) | payer MEDICARE ==
--- NOTE | 2021-09-30 11:54 | MM ---
Reason for Exam: Screening (asymptomatic). Last screening mammogram was performed 12 month(s) ago. Patient History: Menarche at age 15. First Full-Term at age 21. Left ovary removed at age 37. Right ovary removed at age 37. Hysterectomy at age 37. Postmenopausal. Patient used Hormonal Contraceptives for 10 years. Maternal cousin had breast cancer, age 50. Risk Values: Natasha 5 year model risk: 1.2%. NCI Lifetime model risk: 3.9%. Prior Study Comparison: 09/04/2017 Bilateral Screening Mammogram, [facility]. 09/21/2018 Bilateral Screening Mammogram, [facility]. 09/23/2020 Bilateral Screening Mammogram, [facility]. Tissue Density: The breast tissue is heterogeneously dense. This may lower the sensitivity of mammography. Findings: Analyzed By CAD. Stable single benign appearing dystrophic calcification in the right breast. There is no suspicious group of microcalcifications or new suspicious mass in either breast. Overall Assessment: Benign, BI-RAD 2 Management: Screening Mammogram of both breasts in 1 year. A clinical breast exam by your physician is recommended on an annual basis and results should be correlated with mammographic findings. Electronically signed and approved by: Mychal Lauren M.D.
== END | disposition home or self-care (01) ==
LOC: RADMAMWWP 10:28
PROVIDERS: ATTEND Family Medicine
DX: Z12.31 Encounter for screening mammogram for malignant neoplasm of breast (principal); Z78.0 Asymptomatic menopausal state; Z80.3 Family history of malignant neoplasm of breast
CPT/HCPCS: 77063; 77067

== ENCOUNTER → 2021-11-13 | Outpatient (CLI) | payer MEDICARE ==
--- NOTE | 2021-11-13 16:16 | MR ---
EXAMINATION TYPE: MR brain wo con DATE OF EXAM: 11/13/2021 COMPARISON: HISTORY: Repeated falls, dizziness CONTRAST: Performed utilizing 0 mL intravenous Gadavist gadolinium contrast. TECHNIQUE: Multiplanar, multiecho imaging on a 3.0 Con[place]ita magnet is performed through the brain. Stud y is performed within 24 hours of arrival to the hospital. The craniovertebral junction is normal. The pituitary is normal. Diffusion-weighted imaging is performed. No abnormal hyperintensity is present to suggest an acute i ntracranial infarct or acute ischemic change. There are scattered punctate hyperintensities within the deep white matter on inversion recovery weig hted sequences. This is nonspecific but can be related to microvascular ischemic change. Differential diagnosis would include multiple sclerosis, Lyme disease, vasculitis, migraine headaches. Ventricles and sulci are appropriate for the patient age. There is some mucosal thickening through the maxillary sinuses and ethmoid air cells. IMPRESSIONS: 1. Scattered punctate deep white matter changes are nonspecific but could be related to microvascular ischemic change. Differential diagnosis is discussed above.
== END | disposition home or self-care (01) ==
LOC: RADMRIMAIN 09:09
PROVIDERS: ATTEND Nurse Practitioner
DX: R29.6 Repeated falls (principal); R42 Dizziness and giddiness
CPT/HCPCS: 70551

== ENCOUNTER → 2022-01-24 | Outpatient (CLI) | payer MEDICARE ==
[2022-01-24 15:11] LABS: Basophils # (A) 0.04 X 10*3/uL (0.00-0.10); Basophils % (A) 0.6 %; Eosinophils # (A) 0.15 X 10*3/uL (0.04-0.35); Eosinophils % (A) 2.4 %; HCT 45.8 % (37.2-46.3); HGB 14.2 g/dL (12.0-15.0); Immature Grans, Automated 0.3 %; Lymphocytes # (A) 1.57 X 10*3/uL (0.90-5.00); Lymphocytes % (A) 25.2 %; MCH 29.2 pg (27.0-32.0); Mean Platelet Volume 9.9 fL (9.5-12.2); Monocytes # (A) 0.63 X 10*3/uL (0.20-1.00); Monocytes % (A) 10.1 %; NRBC Per 100 WBC 0 /100 WBCS (0.0-0.0); Neutrophils # (A) 3.81 X 10*3/uL (1.80-7.70); Neutrophils % (A) 61.4 %; Platelet Count 341 X 10*3/uL (140-440); RBC 4.87 X 10*6/uL (4.10-5.20); RDW 13.7 % (11.5-14.5); WBC 6.22 X 10*3/uL (4.50-10.00)
[2022-01-24 16:25] LABS: Albumin 4.5 g/dL (3.8-4.9); Albumin/Globulin Ratio 1.77 (1.60-3.17); Anion Gap 8.4 mmol/L (10.00-18.00); BUN/Creat Ratio 18.49 Ratio (12.00-20.00); Blood Urea Nitrogen 16.4 mg/dL (9.0-27.0); Calcium 9.7 mg/dL (8.7-10.3); Carbon Dioxide 29.9 mmol/L (20.0-27.5); Globulin 2.6 g/dL (1.6-3.3); Non-African American GFR(CKD) 66.4 (60.0-200.0); Potassium 4.9 mmol/L (3.5-5.5); Total Bilirubin 0.3 mg/dL (0.30-1.20); Total Protein 7.1 g/dL (6.2-8.2)
[2022-01-24 17:04] LABS: Appearance,CSF Clear; CSF Tube Number 3; CSF Tube Volume 4; Nucleated Cells, CSF 0 u/L (0-5); Red Blood Cell,CSF 0 u/L (0-10); Total Protein,CSF 66 mg/dL (12-60)
== END | disposition home or self-care (01) ==
LOC: LABWHC1 08:56
PROVIDERS: ATTEND Psychiatry & Neurology Neurology
DX: M79.10 Myalgia, unspecified site (principal); R42 Dizziness and giddiness; R41.3 Other amnesia; R51.9 Headache, unspecified
CPT/HCPCS: 36415; 80053; 82040; 82042; 82306; 82607; 82784; 83916; 84157; 85025; 87801; 89050

== ENCOUNTER → 2022-09-30 | Outpatient (CLI) | payer MEDICARE ==
--- NOTE | 2022-10-03 07:44 | MM ---
Reason for Exam: Screening (asymptomatic). Last screening mammogram was performed 12 month(s) ago. Patient History: Menarche at age 15. First Full-Term at age 21. Left ovary removed at age 37. Right ovary removed at age 37. Hysterectomy at age 37. Postmenopausal. Patient has history of breast feeding. Patient used Hormonal Contraceptives for 10 years. Maternal cousin had breast cancer, age 50. Risk Values: Natasha 5 year model risk: 1.2%. NCI Lifetime model risk: 3.7%. Prior Study Comparison: 07/18/2016 Bilateral Screening Mammogram, [facility]. 09/04/2017 Bilateral Screening Mammogram, [facility]. 09/21/2018 Bilateral Screening Mammogram, [facility]. 09/23/2020 Bilateral Screening Mammogram, [facility]. 09/29/2021 Bilateral MG 3D screening mammo w/cad, [facility]. Tissue Density: There are scattered fibroglandular densities. Findings: Analyzed By CAD. There is no suspicious group of microcalcifications or new suspicious mass in either breast. Overall Assessment: Negative, BI-RAD 1 Management: Screening Mammogram of both breasts in [address] [facility] will attempt to contact patient to return for supplemental views and ultrasound if indicated. Patient should continue monthly self-breast exams. A clinical breast exam by your physician is recommended on an annual basis. This exam should not preclude additional follow-up of suspicious palpable abnormalities. Note on Natasha scores and lifetime risk: 1. A Natasha score greater than 3% is considered moderate risk. If this is the case, consider specialist referral to assess eligibility for a risk reducing agent. 2. If overall lifetime risk for the development of breast cancer is 20% or higher, the patient may qualify for future screening with alternating mammogram and breast MRI. Electronically signed and approved by: Mark Linton DO
== END | disposition home or self-care (01) ==
LOC: RADMAMWWP 09:12
PROVIDERS: ATTEND Family Medicine
DX: Z12.31 Encounter for screening mammogram for malignant neoplasm of breast (principal); Z78.0 Asymptomatic menopausal state; Z80.3 Family history of malignant neoplasm of breast
CPT/HCPCS: 77063; 77067

== ENCOUNTER → 2023-10-02 | Outpatient (CLI) | payer MEDICARE ==
--- NOTE | 2023-10-04 09:48 | MM ---
Reason for Exam: Screening (asymptomatic). Last screening mammogram was performed 12 month(s) ago. Patient History: Menarche at age 15. First Full-Term at age 21. Left ovary removed at age 37. Right ovary removed at age 37. Hysterectomy at age 37. Postmenopausal. Patient has history of breast feeding. Patient used Hormonal Contraceptives for 10 years. Maternal cousin had breast cancer, age 50. Risk Values: Natasha 5 year model risk: 1.3%. NCI Lifetime model risk: 3.5%. Prior Study Comparison: 09/04/2017 Bilateral Screening Mammogram, [facility]. 09/21/2018 Bilateral Screening Mammogram, [facility]. 09/23/2020 Bilateral Screening Mammogram, [facility]. 09/29/2021 Bilateral MG 3D screening mammo w/cad, [facility]. 09/30/2022 Bilateral MG 3D screening mammo w/cad, [facility]. Tissue Density: The breasts are heterogeneously dense, which may obscure small masses. Findings: Analyzed By CAD. There is no suspicious group of microcalcifications or new suspicious mass in either breast. Overall Assessment: Benign, BI-RAD 2 Management: Screening Mammogram of both breasts in 1 year. . Patient should continue monthly self-breast exams. A clinical breast exam by your physician is recommended on an annual basis. This exam should not preclude additional follow-up of suspicious palpable abnormalities. Note on Natasha scores and lifetime risk: 1. A Natasha score greater than 3% is considered moderate risk. If this is the case, consider specialist referral to assess eligibility for a risk reducing agent. 2. If overall lifetime risk for the development of breast cancer is 20% or higher, the patient may qualify for future screening with alternating mammogram and breast MRI. Electronically signed and approved by: Bhupendra Nuno M.D. Radiologis
--- NOTE | 2023-10-04 17:46 | BD ---
EXAMINATION TYPE: Axial Bone Density DATE OF EXAM: 10/02/2023 CLINICAL HISTORY: 73 years old Female. ICD-10 CODE: Z78.0 MENOPAUSAL STATE Height: 65 Weight: 179 FRAX RISK QUESTIONS: Family History (Parent hip fracture): no History of Fracture in Adulthood: no Secondary Osteoporosis: yes 3. Menopause before 45: yes 42 RISK FACTORS HISTORY OF: Surgery to Spine/Hip(right/left)/Wrist (right/left): no MEDICATIONS: Thyroid Medications: no Osteoporosis Medications: no EXAM MEASUREMENTS: Bone mineral densitometry was performed using the Ecometrica System. Bone mineral density as measured about the Lumbar spine is: ----- L1-L4(G/cm2): 1.163 T Score Values are as follows: ----- L1: -0.7 ----- L2: -0.8 ----- L3: 0.1 ----- L4: 0.6 ----- L1-L4: -0.1 Z Score Values are as follows: ----- L1: 0.4 ----- L2: 0.3 ----- L3: 1.2 ----- L4: 1.8 ----- L1-L4: 1.0 Bone mineral density has: Increased 4.8% since study of: 09/04/2017 Bone mineral density about the R hip (g/cm2): 1.079 Bone mineral density about the L hip (g/cm2): 1.083 T Score values are as follows: -----R Neck: -0.1 -----L Neck: -0.3 -----R Total: 0.6 -----L Total: 0.6 Z Score values are as follows: -----R Neck: 1.3 -----L Neck: 1.1 -----R Total: 1.7 -----L Total: 1.8 Bone mineral density has: Decreased -0.6% since study of: 09/04/2017 FRAX%s: The graph provided illustrates a 7.5% chance for a major osteoporotic fx and a 0.5% chance fo r the hips probability for fx in 10 years time. IMPRESSION: Normal (Values between +1 and -1 indicate normal bone mass). Consider repeating this study in 5 year s or sooner if there is some new clinical indication. NOTE: T-SCORE=SD OF THE YOUNG ADULT MEAN.
== END | disposition home or self-care (01) ==
LOC: RADMAMWWP 08:07
PROVIDERS: ATTEND Family Medicine
DX: Z12.31 Encounter for screening mammogram for malignant neoplasm of breast (principal); Z78.0 Asymptomatic menopausal state; Z80.3 Family history of malignant neoplasm of breast
CPT/HCPCS: 77063; 77067; 77080

== ENCOUNTER 2023-12-20 08:45 | Day surgery (SDC) | payer MEDICARE ==
--- NOTE | 2023-12-20 08:07 | P.GSHP ---
History of Present Illness H&P Date: 12/20/23 CHIEF COMPLAINT: Colon screen HISTORY OF PRESENT ILLNESS: The patient is a 73-year-old female who presents for colon screen. Lower endoscopy was offered for further evaluation and management. PAST MEDICAL HISTORY: Please see list. PAST SURGICAL HISTORY: Please see list. MEDICATIONS: Please see list. ALLERGIES: Please see list. SOCIAL HISTORY: No illicit drug use FAMILY HISTORY: No reports of Crohn disease or ulcerative colitis. REVIEW OF ORGAN SYSTEMS: CONSTITUTIONAL: No reports of fevers or chills. PHYSICAL EXAM: VITAL SIGNS: Stable GENERAL: Well-developed pleasant in no acute distress. HEENT: No scleral icterus. Extraocular movements grossly intact. Moist buccal mucosa. NECK: Supple without lymphadenopathy. CHEST: Unlabored respirations. Equal bilateral excursions. CARDIOVASCULAR: Regular rate and rhythm. Distal 2+ pulses. ABDOMEN: Soft, nontender, nondistended. MUSCULOSKELETAL: No clubbing, cyanosis, or edema. ASSESSMENT: 1. Colon screen. PLAN: 1. Recommend proceeding with a lower endoscopy Past Medical History Past Medical History: Blood Disorder, Deep Vein Thrombosis (DVT), GERD/Reflux, Liver Disease Additional Past Medical History / Comment(s): MIGRAINES, DIVERTICULITIS, ILE OSTOMY, THEN REVERSED., DVT X2. FACTOR V. "LIVER LOOKED LARGE ON SCAN." carpal tunnel IN THUMBS., chronic back pain- have gone to pain clinic for procedures prior. History of Any Multi-Drug Resistant Organisms: None Reported Past Surgical History: Bowel Resection, Cholecystectomy, Hysterectomy Additional Past Surgical History / Comment(s): ILEOSTOMY, LAPAROSCOPY AND DRAINAGE OF PERITONEAL ABSCESS 01/2013. ILEOSTOMY REVERSAL 2013, colonscopy Past Anesthesia/Blood Transfusion Reactions: No Reported Reaction Smoking Status: Never smoker - Past Family History Mother Family Medical History: No Reported History Medications and Allergies Home Medications Medication Instructions Recorded Confirmed Type Propranolol HCl [Propranolol HCl 160 mg PO DAILY 04/11/14 12/15/23 History ER] Omeprazole Magnesium [PriLOSEC OTC] 20 mg PO DAILY 12/15/17 12/15/23 History Sertraline [Zoloft] 50 mg PO DAILY 12/15/17 12/15/23 History Fluticasone Nasal [place] [Flonase 2 spr EA NOSTRIL HS PRN 10/09/20 12/15/23 History Nasal [place]] Melatonin 3 mg PO HS 10/09/20 12/15/23 History Multivitamin [Multivitamins Adult 2 tab PO DAILY 10/09/20 12/15/23 History Gummies] Ascorbic Acid [Vitamin C] 500 mg PO DAILY 12/15/23 12/15/23 History Cinnamon Bark [Cinnamon] 2,000 mg PO DAILY 12/15/23 12/15/23 History Allergies Allergy/AdvReac Type Severity Reaction Status Date / Time codeine Allergy Unknown Itching Verified 12/15/23 15:41 meperidine HCl [From Demerol] Allergy Unknown Nausea & Verified 12/15/23 15:41 Vomiting & Diarrhea ondansetron HCl [From Zofran] Allergy Unknown Swelling Verified 12/15/23 15:41 Penicillins Allergy Unknown Rash/Hives Verified 12/15/23 15:41 Sulfa (Sulfonamide Allergy Unknown Rash/Hives Verified 12/15/23 15:41 Antibiotics) venom-honey bee Allergy Unknown Swelling Verified 12/15/23 15:41 [bee venom (honey bee)] venom-wasp [Wasp Venom] Allergy Unknown Swelling Verified 12/15/23 15:41
[~2023-12-20 08:45] MED LIST: LIDOCAINE 1% (10MG/ML) FOR IV START INTRADERMA PRN
[2023-12-20 09:07] VITALS: TEMP 97.3
[2023-12-20] MEDS: IV FLUID CONTINUATION 1,000 ML IV ONE (09:13)
[2023-12-20] MEDS: LACTATED RINGERS 1,000 ML IV SCH (09:13)
[2023-12-20] MEDS ORDERED: PROPOFOL 10 MG/ML 20 ML VIAL IV ONE (09:33)
[2023-12-20] MEDS ORDERED: LIDOCAINE 1% INJ 10MG/ML (20 ML MDV) ONE (09:33)
--- NOTE | 2023-12-20 09:55 | P.PCN ---
Date of Procedure: 12/20/23 Description of Procedure: PREOPERATIVE DIAGNOSIS: Colonoscopy screening. POSTOPERATIVE DIAGNOSIS: Colonoscopy screening. Diverticulosis, scattered. OPERATION: Colonoscopy to the cecum, ileocecal valve and appendiceal orifice. SURGEON: Lenore Padilla MD. ANESTHESIA: MAC. INDICATIONS: The patient is a 73-year-old female who presents for colonoscopy screening. Last colonoscopy over 5 years ago. Benefits and risks were described and informed consent was obtained. DESCRIPTION OF PROCEDURE: The patient had undergone GoLytely prep. The patient had been brought into the operating room and laid in the left lateral decubitus position. After adequate intravenous sedation, the rectum was examined with 2% lidocaine jelly. No external hemorrhoids were encountered. The rectal tone was within normal limits. No lesions were palpated in the rectal vault. An Olympus colonoscope was advanced until the cecum, ileocecal valve and appendiceal orifice were clearly viewed. The prep was good. Scattered diverticulosis was encountered. No colonic polyps were found. No evidence of focal colitis was found. Retroflexion of the scope demonstrated grade 1 internal hemorrhoids without active bleeding or inflammation. The colon was desufflated. The patient had tolerated the procedure well. Withdrawal time was over 6 minutes. FINDINGS: Aronchick preparation quality scale 1+ (1-5) Internal hemorrhoids, grade 1 No external prolapsed hemorrhoids. No arteriovenous malformations. No adenomatous polyps. No focal colitis. Moderate sigmoid diverticulosis with highly redundant sigmoid colon RECOMMENDATIONS: Lower endoscopy in 4 years, 2027 Plan - Discharge Summary New Discharge Prescriptions: Continue Propranolol HCl [Propranolol HCl ER] 160 mg PO DAILY Sertraline [Zoloft] 50 mg PO DAILY Omeprazole Magnesium [PriLOSEC OTC] 20 mg PO DAILY Multivitamin [Multivitamins Adult Gummies] 2 tab PO DAILY Fluticasone Nasal [place] [Flonase Nasal [place]] 2 spr EA NOSTRIL HS PRN PRN Reason: Allergy Symptoms Melatonin 3 mg PO HS Ascorbic Acid [Vitamin C] 500 mg PO DAILY Cinnamon Bark [Cinnamon] 2,000 mg PO DAILY Discharge Medication List Propranolol HCl [Propranolol HCl ER] 160 mg PO DAILY 04/11/14 [History] Omeprazole Magnesium [PriLOSEC OTC] 20 mg PO DAILY 12/15/17 [History] Sertraline [Zoloft] 50 mg PO DAILY 12/15/17 [History] Fluticasone Nasal [place] [Flonase Nasal [place]] 2 spr EA NOSTRIL HS PRN 10/09/20 [History] Melatonin 3 mg PO HS 10/09/20 [History] Multivitamin [Multivitamins Adult Gummies] 2 tab PO DAILY 10/09/20 [History] Ascorbic Acid [Vitamin C] 500 mg PO DAILY 12/15/23 [History] Cinnamon Bark [Cinnamon] 2,000 mg PO DAILY 12/15/23 [History] Follow up Appointment(s)/Referral(s): Lenore Padilla MD [STAFF PHYSICIAN] - As Needed Patient Instructions/Handouts: Diverticulosis (DC) Activity/Diet/Wound Care/Special Instructions: Repeat colonoscopy 4 years, 2027 Discharge Disposition: HOME SELF-CARE
[2023-12-20 09:58] VITALS: RESP 16
[2023-12-20 10:31] VITALS: BP 129/74; PULSE 74
== END 2023-12-20 10:36 | disposition home or self-care (01) ==
LOC: ORWHC2ENDO 08:45
PROVIDERS: ATTEND Surgery Plastic and Reconstructive Surgery
DX: Z12.11 Encounter for screening for malignant neoplasm of colon (principal); K57.30 Diverticulosis of large intestine without perforation or abscess without bleeding; K21.9 Gastro-esophageal reflux disease without esophagitis; G89.29 Other chronic pain; Z79.899 Other long term (current) drug therapy; Z86.718 Personal history of other venous thrombosis and embolism; Z88.0 Allergy status to penicillin; Z88.1 Allergy status to other antibiotic agents; Z88.2 Allergy status to sulfonamides; Z88.5 Allergy status to narcotic agent; Z88.8 Allergy status to other drugs, medicaments and biological substances; Z90.49 Acquired absence of other specified parts of digestive tract; Z91.030 Bee allergy status; Z90.710 Acquired absence of both cervix and uterus

== ENCOUNTER → 2024-05-15 | Outpatient (CLI) | payer MEDICARE ==
--- NOTE | 2024-05-15 11:36 | US ---
EXAMINATION TYPE: US abdomen complete DATE OF EXAM: 05/15/2024 COMPARISON: NONE CLINICAL INDICATION: Female, 74 years old with history of R10.811 RIGHT UPPER QUADRANT ABDOMINAL TEND ERNESS; Palpable to the right of umbilicus, also having RUQ pain, cholecystectomy TECHNIQUE: Grayscale and color Doppler imaging of the abdomen was performed. FINDINGS: EXAM MEASUREMENTS: Liver Length: 17.3 cm Gallbladder: Surgically absent CBD: 0.7 cm, color Doppler imaging was utilized to isolate the common bile duct for measurement. Spleen: 10.2 cm Right Kidney: 10.4 x 4.3 x 3.9 cm Left Kidney: 10.8 x 4.5 x 5.5 cm Pancreas: wnl Liver: wnl, no dilated ducts, masses or cysts. Gallbladder: Surgically absent Evidence for sonographic Billings's sign: no CBD: wnl Spleen: wnl Right Kidney: wnl, No hydronephrosis, calculi or masses seen Left Kidney: wnl, No hydronephrosis, calculi or masses seen Upper IVC: wnl Abd Aorta: wnl Hand Alterations Tailor notes: Scanned "lump" to the right of umbilicus - no abnormality seen with and without va lsalva IMPRESSION: 1. Borderline to mildly dilated bile duct, acceptable given patient's age and postcholecystectomy sta tus. 2. Targeted scanning along the right side of the umbilicus shows no discrete sonographic abnormality. [facility], , 05/15/2024 11:34 AM
== END | disposition home or self-care (01) ==
LOC: RADUSWWP 09:09
PROVIDERS: ATTEND Family Medicine
DX: R10.811 Right upper quadrant abdominal tenderness (principal); K83.8 Other specified diseases of biliary tract; R10.33 Periumbilical pain
CPT/HCPCS: 76700

== ENCOUNTER → 2024-10-02 | Outpatient (CLI) | payer MEDICARE ==
--- NOTE | 2024-10-02 12:05 | BD ---
EXAMINATION TYPE: Axial Bone Density DATE OF EXAM: 10/02/2024 CLINICAL HISTORY: 74 years old Female. ICD-10 CODE: Z78.0 MENOPAUSAL STATE , Additional History: Height: 64.2 Weight: 181 FRAX RISK QUESTIONS: Secondary Osteoporosis: yes 3. Menopause before 45: yes, 42 5. Chronic liver disease: yes, enlarged/fatty RISK FACTORS HISTORY OF: diabetes, height loss MEDICATIONS: vit d, bp meds, metformin, EXAM MEASUREMENTS: Bone mineral densitometry was performed using the [employer] System. Bone mineral density as measured about the Lumbar spine is: ----- L1-L4(G/cm2): 1.162 T Score Values are as follows: ----- L1: -0.8 ----- L2: -0.8 ----- L3: 0.1 ----- L4: 0.6 ----- L1-L4: -0.1 Z Score Values are as follows: ----- L1: 0.3 ----- L2: 0.4 ----- L3: 1.2 ----- L4: 1.7 ----- L1-L4: 1.0 Bone mineral density has: Decreased -0.1% since study of: 10.02.2023 Bone mineral density about the R hip (g/cm2): 1.085 Bone mineral density about the L hip (g/cm2): 1.030 T Score values are as follows: -----R Neck: -0.3 -----L Neck: -1.0 -----R Total: 0.6 -----L Total: 0.2 Z Score values are as follows: -----R Neck: 1.1 -----L Neck: 0.5 -----R Total: 1.8 -----L Total: 1.4 Bone mineral density has: Decreased -2.2% since study of: 10.02.2023 FRAX%s: The graph provided illustrates a 9.0% chance for a major osteoporotic fx and a 1.1% chance fo r the hips probability for fx in 10 years time. IMPRESSION: Normal (Values between +1 and -1 indicate normal bone mass). However, note that measurements are bor dering on osteopenia at the left hip. Consider repeating this study in 5 years or sooner if there is some new clinical indication. NOTE: T-SCORE=SD OF THE YOUNG ADULT MEAN. [facility], , 10/02/2024 12:02 PM
--- NOTE | 2024-10-02 15:05 | MM ---
Reason for Exam: Screening (asymptomatic). Last screening mammogram was performed 12 month(s) ago. Patient History: Menarche at age 15. First Full-Term at age 21. Left ovary removed at age 37. Right ovary removed at age 37. Hysterectomy at age 37. Postmenopausal. Patient has history of breast feeding. Patient used Hormonal Contraceptives for 10 years. Maternal cousin had breast cancer, age 50. Risk Values: Natasha 5 year model risk: 1.3%. NCI Lifetime model risk: 3.3%. Prior Study Comparison: 09/29/2021 Bilateral MG 3D screening mammo w/cad, [facility]. 09/30/2022 Bilateral MG 3D screening mammo w/cad, [facility]. 10/02/2023 Bilateral MG 3D screening mammo w/cad, [facility]. Tissue Density: The breasts are heterogeneously dense, which may obscure small masses. Findings: Analyzed By CAD. Benign oil cyst calcification on the right. There is no suspicious group of microcalcifications or new suspicious mass in either breast. Overall Assessment: Benign, BI-RAD 2 Management: Screening Mammogram of both breasts in 1 year. Patient should continue monthly self-breast exams. A clinical breast exam by your physician is recommended on an annual basis. This exam should not preclude additional follow-up of suspicious palpable abnormalities. Note on Natasha scores and lifetime risk: 1. A Natasha score greater than 3% is considered moderate risk. If this is the case, consider specialist referral to assess eligibility for a risk reducing agent. 2. If overall lifetime risk for the development of breast cancer is 20% or higher, the patient may qualify for future screening with alternating mammogram and breast MRI. [facility], , 10/02/2024 3:01 PM. Electronically signed and approved by: Ariana Bocanegra M.D. Radiologist
== END | disposition home or self-care (01) ==
LOC: RADMAMWWP 11:16
PROVIDERS: ATTEND Family Medicine
DX: Z12.31 Encounter for screening mammogram for malignant neoplasm of breast (principal); R92.333 Mammographic heterogeneous density, bilateral breasts; M85.852 Other specified disorders of bone density and structure, left thigh; Z78.0 Asymptomatic menopausal state; Z92.0 Personal history of contraception; Z80.3 Family history of malignant neoplasm of breast
CPT/HCPCS: 77063; 77067; 77080